=== PATIENT | male | born 1950 | race Caucasian/White ===

== ENCOUNTER → 2022-04-28 | Outpatient (CLI) | payer MEDICARE ==
--- NOTE | 2022-04-28 17:09 | MR ---
EXAMINATION TYPE: MR iac wo/w con DATE OF EXAM: 04/28/2022 COMPARISON: HISTORY: Right hearing loss CONTRAST: Performed utilizing 7 mL intravenous Gadavist gadolinium contrast. TECHNIQUE: Multiplanar, multiecho imaging on a 3.0 [place] magnet is performed through the brain. Thin section imaging was performed through the internal auditory canals.. Study is performed within 24 ho urs of arrival to the hospital. The craniovertebral junction is normal. The pituitary is normal. Diffusion-weighted imaging is performed. No abnormal hyperintensity is present to suggest an acute i ntracranial infarct or acute ischemic change. There are scattered periventricular and deep white matter hyperintensities on T2 and inversion recove ry weighted sequences. This is nonspecific but can be related to microvascular ischemic change. Diffe rential diagnosis could include multiple sclerosis, vasculitis, Lyme disease. Ventricles and sulci are appropriate for the patient age. Attention is paid to the internal auditory canals. No expansion or erosion is evident. No abnormal en hancement is evident within the internal auditory canals or elsewhere within the included brain. Mast oid air cells appear clear. IMPRESSIONS: 1. Scattered punctate deep white matter changes is likely on the basis of chronic white matter ischem ic change. 2. No suspicious changes to account for right-sided hearing loss
== END | disposition home or self-care (01) ==
LOC: RADMRIMAIN 13:51
PROVIDERS: ATTEND Otolaryngology
DX: I67.82 Cerebral ischemia (principal)
CPT/HCPCS: 70553; A9585